=== PATIENT | female | born 1970 | race Hispanic/Latino ===

== ENCOUNTER → 2021-03-28 | Outpatient (CLI) | payer MEDICAID | END | disposition home or self-care (01) | LOC: RAH 10:38 | PROVIDERS: ATTEND Internal Medicine | DX: E04.2 Nontoxic multinodular goiter (principal) | CPT/HCPCS: 76536 ==

== ENCOUNTER 2023-10-15 15:44 | Emergency (ER) | payer MEDICAID, OTHER ==
[~2023-10-15] VITALS: Ht 157.5 cm; Wt 83.9 kg
[2023-10-15] MEDS ORDERED: METH100054 PO (18:00)
[2023-10-15] MEDS: METHOCARBAMOL 500 MG TABLET PO ONE (20:01)
[2023-10-15 20:23] VITALS: BP 146/85; PULSE 80; RESP 16; O2SAT 100
== END 2023-10-15 20:24 | disposition home or self-care (01) ==
LOC: EDH 15:44
DX: M25.512 Pain in left shoulder (principal); E11.9 Type 2 diabetes mellitus without complications; E78.00 Pure hypercholesterolemia, unspecified; I10 Essential (primary) hypertension; V89.2XXA Person injured in unspecified motor-vehicle accident, traffic, initial encounter; Y93.89 Activity, other specified; Y92.488 Other paved roadways as the place of occurrence of the external cause; Y99.8 Other external cause status
CPT/HCPCS: 73030; 73060; 73090